=== PATIENT | male | born 1960 | race Caucasian/White ===

== ENCOUNTER 2017-05-02 10:30 | Inpatient (IN) | payer SELFPAY ==
[~2017-05-02] VITALS: Ht 177.8 cm; Wt 120.4 kg
[2017-05-02] VITALS (10 sets, daily range): BP systolic 156–205; BP diastolic 79–150; PULSE 82–96; RESP 17–20; TEMP 97–97.9; O2SAT 95–99
[2017-05-02] MEDS: SODIUM CHLORIDE 0.9% FLUSH 10 ML FLUSH IVF PRN ×2 (11:00→14:02)
[2017-05-02 11:18] LABS: AUTOMATED NEUTROPHIL # 3.6 TH/MM3 (1.8-7.7); BASOPHIL # 0.1 TH/MM3 (0-0.2); BASOPHIL % 1.2 % (0.0-2.0); EOSINOPHIL # 0.2 TH/MM3 (0-0.4); HEMATOCRIT 43.7 % (39.0-51.0); HEMO FLAGS DIFF FINAL; LYMPH % 15.6 % (9.0-44.0); LYMPHOCYTE # 0.8 TH/MM3 (1.0-4.8); MEAN CELL VOLUME 87.2 FL (80.0-100.0); MEAN CORPUSCULAR HEMOGLOBIN 29.8 PG (27.0-34.0); MEAN CORPUSCULAR HGB CONC 34.2 % (32.0-36.0); NEUT % 67.2 % (16.0-70.0); PLATELET COUNT 178 TH/MM3 (150-450); RED BLOOD COUNT 5.01 MIL/MM3 (4.50-5.90); RED CELL DISTRIBUTION WIDTH 15.7 % (11.6-17.2); WHITE BLOOD COUNT 5.4 TH/MM3 (4.0-11.0)
--- NOTE | 2017-05-02 11:25 | PD ---
HPI Chief Complaint: Respiratory Symptoms Time Seen by Provider: 10:47 Travel History International Travel<30 days: No Contact w/Intl Traveler<30days: No Traveled to known affect area: No History of Present Illness HPI 57-year-old male with no past medical history, presents today with complaints of shortness of breath. Patient also complains of swelling to his legs and abdomen. He denies any previous history of swelling. He denies any history of liver disease. The patient does state that he has drunk heavily in the past however states about 3 weeks ago he decreased his EtOH intake. There is no history of tobaccoism currently. He states he stopped smoking several years back. He has no heart disease. There are no other complaints time my examination. PFSH Past Medical History Medical History: Denies Significant Hx Diminished Hearing: No Tetanus Vaccination: > 5 Years Influenza Vaccination: No Past Surgical History Surgical History: No Previous Surgery Social History Alcohol Use: Yes (ocassionally) Tobacco Use: No (5 years ago) Substance Use: No (pt denies ) Allergies-Medications (Allergen,Severity, Reaction): Coded Allergies: No Known Allergies (Unverified , 05/02/17) Reported Meds & Prescriptions Reported Meds & Active Scripts Active No Active Prescriptions or Reported Medications Review of Systems Except as stated in HPI: all other systems reviewed are Neg General / Constitutional: No: Fever, Chills HENT: No: Headaches, Lightheadedness Cardiovascular: No: Chest Pain or Discomfort, Palpitations Respiratory: Positive: Cough, Shortness of Breath, No: Wheezing Gastrointestinal: Positive: Constipation, Other (abdominal swelling.), No: Nausea, Vomiting, Abdominal Pain Genitourinary: No: Dysuria, Decreased Urinary Output Musculoskeletal: Positive: Edema (bilateral lower extremities), No: Weakness, Pain Skin: Positive Itching (lower extremities), No Rash Neurologic: No: Weakness, Headache Physical Exam Narrative GENERAL: Developed well-nourished gentleman in no acute respiratory distress. SKIN: Focused skin assessment warm/dry. HEAD: Atraumatic. Normocephalic. EYES: Pupils equal and round. nasal bleeding or discharge. Mucous membranes pink and moist. NECK: Trachea midline. No JVD. CARDIOVASCULAR: Regular rate and rhythm. No murmur appreciated. RESPIRATORY: No accessory muscle use. Clear to auscultation. Breath sounds equal bilaterally. No obvious Rales appreciated. GASTROINTESTINAL: Abdomen soft, slightly distended. No fluid wave. No pulsatile masses. No rebound or guarding. MUSCULOSKELETAL: No obvious deformities. No clubbing. No cyanosis. 1+ edema bilateral lower extremities. The patient has a area of excoriation on his anterior ankle of the right leg. He states that that was from when he had significant swelling. NEUROLOGICAL: Awake and alert. No obvious cranial nerve deficits. Motor grossly within normal limits. Normal speech. PSYCHIATRIC: Appropriate mood and affect; insight and judgment normal. Data Data Last Documented VS Vital Signs Date Time Temp Pulse Resp B/P Pulse Ox O2 Delivery O2 Flow Rate FiO2 05/02/17 13:29 83 17 180/113 99 Room Air 05/02/17 12:19 97.9 Orders Complete Blood Count With Diff (05/02/17 10:58) Comprehensive Metabolic Panel (05/02/17 10:58) B-Type Natriuretic Peptide (05/02/17 10:58) Ckmb (Isoenzyme) Profile (05/02/17 10:58) Troponin I (05/02/17 10:58) Arterial Blood Gas (Abg) (05/02/17 10:58) Iv Access Insert/Monitor (05/02/17 10:58) Electrocardiogram (05/02/17 10:58) Ecg Monitoring (05/02/17 10:58) Oximetry (05/02/17 10:58) Oxygen Administration (05/02/17 10:58) Chest, Single Ap (05/02/17 10:58) Sodium Chloride 0.9% Flush (Ns Flush) (05/02/17 11:00) Hydralazine Inj (Apresoline Inj) (05/02/17 13:45) Furosemide Inj (Lasix Inj) (05/02/17 14:00) Admit Order (Ed Use Only) (05/02/17 13:55) Labs Laboratory Tests Test 05/02/17 05/02/17 11:00 11:05 White Blood Count 5.4 TH/MM3 Red Blood Count 5.01 MIL/MM3 Hemoglobin 14.9 GM/DL Hematocrit 43.7 % Mean Corpuscular Volume 87.2 FL Mean Corpuscular Hemoglobin 29.8 PG Mean Corpuscular Hemoglobin 34.2 % Concent Red Cell Distribution Width 15.7 % Platelet Count 178 TH/MM3 Mean Platelet Volume 9.5 FL Neutrophils (%) (Auto) 67.2 % Lymphocytes (%) (Auto) 15.6 % Monocytes (%) (Auto) 12.0 % Eosinophils (%) (Auto) 4.0 % Basophils (%) (Auto) 1.2 % Neutrophils # (Auto) 3.6 TH/MM3 Lymphocytes # (Auto) 0.8 TH/MM3 Monocytes # (Auto) 0.6 TH/MM3 Eosinophils # (Auto) 0.2 TH/MM3 Basophils # (Auto) 0.1 TH/MM3 CBC Comment DIFF FINAL Differential Comment Sodium Level 139 MEQ/L Potassium Level 3.6 MEQ/L Chloride Level 105 MEQ/L Carbon Dioxide Level 24.8 MEQ/L Anion Gap 9 MEQ/L Blood Urea Nitrogen 15 MG/DL Creatinine 1.29 MG/DL Estimat Glomerular Filtration 57 ML/MIN Rate Random Glucose 107 MG/DL Hemoglobin A1c 6.2 % Calcium Level 8.6 MG/DL Total Bilirubin 1.4 MG/DL Aspartate Amino Transf 12 U/L (AST/SGOT) Alanine Aminotransferase 17 U/L (ALT/SGPT) Alkaline Phosphatase 53 U/L Total Creatine Kinase 78 U/L Troponin I 0.02 NG/ML B-Type Natriuretic Peptide 1666 PG/ML Total Protein 6.7 GM/DL Albumin 3.5 GM/DL Triglycerides Level 90 MG/DL Cholesterol Level 163 MG/DL LDL Cholesterol 105 MG/DL HDL Cholesterol 40.3 MG/DL Cholesterol/HDL Ratio 4.04 RATIO Thyroid Stimulating Hormone 1.400 uIU/ML 3rd Gen Blood Gas Puncture Site RT RADIAL Blood Gas Patient Temperature 98.6 Blood Gas HCO3 22 mmol/L Blood Gas Base Excess -1.2 mmol/L Blood Gas Oxygen Saturation 93 % Arterial Blood pH 7.44 Arterial Blood Partial 33 mmHg Pressure CO2 Arterial Blood Partial 74 mmHG Pressure O2 Arterial Blood Oxygen Content 19.0 Vol % Arterial Blood 1.4 % Carboxyhemoglobin Arterial Blood Methemoglobin 0.6 % Blood Gas Hemoglobin 14.6 G/DL Blood Gas Inspired Oxygen 21 % [facility] Medical Decision Making Medical Screen Exam Complete: Yes Emergency Medical Condition: Yes Differential Diagnosis Renal disease versus liver disease versus dependent edema versus metabolic derangement Narrative Course 57 year-old gentleman presents with complaints of shortness of breath. Patient states it's been progressive over the last several days. Patient has congestive heart failure on x-ray and is BNP is also elevated above 1600. The patient's cardiac enzymes are within normal limits. His blood pressure was noted to be above 200 systolic when he arrived. He has no reported history of hypertension. He is given 1 dose of IV hydralazine of 10 mg. It brought it down however is gone back up again. He is given a second dose of IVD hydralazine as well as 20 mg of IV Lasix. He'll be admitted to the hospital for blood pressure control. He'll also be diuresed. I discussed the case [facility] [place], who is gracious enough to admit to the service. He'll be a full admission. Diagnosis Primary Impression: Congestive heart failure Additional Impression: Uncontrolled hypertension Admitting Information Admitting Physician Requests: Admit Scripts No Active Prescriptions or Reported Meds Edgar Pineda MD May 02, 2017 11:25
--- NOTE | 2017-05-02 11:30 | RADRPT ---
EXAM DATE/TIME: 05/02/2017 11:01 [place] COMPARISON: No previous studies available for comparison. INDICATIONS : Lower extremity swelling along with shortness of breath. MEDICAL HISTORY : None. SURGICAL HISTORY : None ENCOUNTER: Initial ACUITY: 2 weeks PAIN SCORE: 3/10 LOCATION: Bilateral upper chest FINDINGS: There is cardiomegaly with mild congestive failure. Minimal parenchymal l changes are seen in the ri ght apex and left base. The portion of the bony skeleton visualized is unremarkable. CONCLUSION: Cardiomegaly with mild congestive failure. Minimal right apical and left base consolidative change s Peter Clemens MD FACR on May 02, 2017 at 11:26 Board Certified Radiologist. This report was verified electronically.
[2017-05-02 11:39] LABS: ALT (GPT) 17 U/L (12-78); ANION GAP 9 MEQ/L (5-15); AST (GOT) 12 U/L (15-37); BICARBONATE 24.8 MEQ/L (21.0-32.0); BLOOD UREA NITROGEN 15 MG/DL (7-18); CHLORIDE 105 MEQ/L (98-107); GLOMERULAR FILTRATION RATE 57 ML/MIN (>89); POTASSIUM 3.6 MEQ/L (3.5-5.1); SODIUM (NA) 139 MEQ/L (136-145)
[2017-05-02 11:43] LABS: ALKALINE PHOSPHATASE 53 U/L (45-117); TOTAL BILIRUBIN ADULT 1.4 MG/DL (0.2-1.0)
[2017-05-02 11:48] LABS: CREATINE KINASE 78 U/L (39-308)
[2017-05-02 13:08] LABS: BLOOD GAS BASE EXCESS -1.2 mmol/L (-2-2); BLOOD GAS CARBOXYHEMOGLOBIN 1.4 % (0-4); BLOOD GAS HCO3 22 mmol/L (22-26); BLOOD GAS METHEMOGLOBIN 0.6 % (0-2); BLOOD GAS O2 HGB SATURATION 93 % (90-100); BLOOD GAS PCO2 33 mmHg (38-42); BLOOD GAS PO2 74 mmHG (61-120); BLOOD GAS TOTAL HGB 14.6 G/DL (12.0-16.0); CRITICAL VALUE NO; TEMP CORR TO 98.6
[2017-05-02 13:09] LABS: DRAW SITE RT RADIAL; FIO2 21 %; NUMBER OF ARTERIAL PUNCTURES 1; STAT YES; ULNAR PULSE PRESENT
[2017-05-02] MEDS ORDERED: hydrALAZINE HCL 20 MG/ML VIAL IV PUSH ONE ×2 (13:45→16:45)
[2017-05-02] MEDS ORDERED: FUROSEMIDE 40 MG/4 ML VIAL IV PUSH ONE (14:00)
[2017-05-02] MEDS ORDERED: SODIUM CHLORIDE 0.9% FLUSH 10 ML FLUSH IV FLUSH PRN (14:45)
[2017-05-02] MEDS ORDERED: NALOXONE HCL 0.4 MG/ML AMP IV PRN (14:45)
[2017-05-02 15:52] LABS: HDL CHOLESTEROL 40.3 MG/DL (40.0-60.0); LDL CHOLESTEROL 105 MG/DL (0-99)
[2017-05-02] MEDS: ENOXAPARIN SODIUM 40 MG/0.4 ML SYRINGE SQ SCH (16:03)
--- NOTE | 2017-05-02 16:24 | EKG ---
Date Performed: 05/02/2017 Time Performed: 11:11:51 PTAGE: 57 years EKG: Sinus rhythm POSSIBLE LEFT ATRIAL ENLARGEMENT MODERATE INTRAVENTRICULAR CONDUCTION DELAY NONSPECIFIC ST & T-WAVE ABNORMALITY ABNORMAL ECG NO PREVIOUS TRACING DOCTOR: Jerome Duque Interpretating Date/Time 05/02/2017 16:21:05
--- NOTE | 2017-05-02 16:58 | HHI.HP ---
HPI Service [facility] Primary Care Physician No Primary Care Physician Admission Diagnosis chf, uncontrolled hypertension, Diagnoses: Chief Complaint: Swelling, shortness of breath Travel History International Travel<30 Days: No Contact w/Intl Traveler <30 Da: No Traveled to Known Affected Are: No History of Present Illness The patient is a 57-year-old male with no significant past medical history who is presenting to the hospital with generalized swelling and shortness of breath. He says about a month ago he noticed tightness around his abdomen and he became constipated. He says over the next 5-6 days his symptoms got better and he was doing well. Over the last 2 weeks he has been experiencing increased swelling in his legs up to his upper thighs. He also has been endorsing the abdominal tightness and distention. He has had associated shortness of breath. He says he used to bicycle 20 miles daily but over the past month has been unable to do so because of his symptoms. He says that his shortness of breath is worse when he lays down or when he walks around. He says he has not been getting much sleep because a lot of the times he will wake up gasping for air. The patient says that he experiences palpitations from time to time. He says the palpitations occur at rest. They generally will last a few seconds at a time. The patient also endorses a cough with phlegm production recently. He has felt feverish but his thermometer ran out of batteries so he has not been able to measure a temperature. Review of Systems Except as stated in HPI: all other systems reviewed are Neg Past Family Social History Past Medical History Lower abdominal surgery Allergies: Coded Allergies: No Known Allergies (Unverified , 05/02/17) Active Ordered Medications Current Medications Medications (Trade) Dose Ordered Sig/Emma Route Start Time Stop Time Status Last Admin (NS Flush) 2 ml UNSCH PRN IV FLUSH 05/02/17 14:45 (NS Flush) 2 ml BID IV FLUSH 05/02/17 21:00 (Tylenol) 650 mg Q4H PRN PO 05/02/17 14:45 (Lovenox Inj) 40 mg Q24H SQ 05/02/17 16:00 05/02/17 16:03 (Tylenol) 650 mg Q6H PRN PO 05/02/17 14:45 (Narcan Inj) 0.4 mg UNSCH PRN IV 05/02/17 14:45 (Elodia-Colace) 1 tab BID PO 05/02/17 21:00 (Prinivil) 10 mg DAILY PO 05/02/17 17:00 (Vasotec Inj) 2.5 mg Q6H PRN IV PUSH 05/02/17 17:00 (Catapres) 0.1 mg Q6H PRN PO 05/02/17 17:00 Family History The patient's grandmother from a heart attack in her 60s. The patient's grandfather from colon cancer. Social History The patient is currently not working. He quit smoking last year. He drinks half a pint of vodka daily, but has not done so over the past month. He denies illicit drug use. Physical Exam Vital Signs Vital Signs Date Time Temp Pulse Resp B/P Pulse Ox O2 Delivery O2 Flow Rate FiO2 05/02/17 16:19 83 19 189/131 96 Room Air 05/02/17 14:51 97.8 83 17 183/96 99 05/02/17 13:29 83 17 180/113 99 Room Air 05/02/17 12:19 97.9 82 18 185/112 98 Room Air 05/02/17 11:00 98 Room Air 05/02/17 11:00 20 98 Room Air 05/02/17 11:00 96 20 98 Room Air 05/02/17 10:32 97.0 96 205/150 96 Room Air Physical Exam GENERAL: This is a well-nourished, well-developed patient, in no apparent distress. SKIN: No rashes, ecchymoses. Cool and dry. Lipoma on right upper back. HEAD: Atraumatic. Normocephalic. No temporal or scalp tenderness. EYES: Pupils equal round and reactive. Extraocular motions intact. No scleral icterus. No injection or drainage. ENT: Nose without bleeding, purulent drainage or septal hematoma. Throat without erythema, tonsillar hypertrophy or exudate. Uvula midline. Airway patent. NECK: Trachea midline. No JVD or lymphadenopathy. Supple, nontender, no meningeal signs. CARDIOVASCULAR: Tachycardic without murmurs, gallops, or rubs. RESPIRATORY: Clear to auscultation. Breath sounds equal bilaterally. No wheezes , rales, or rhonchi. GASTROINTESTINAL: Abdomen soft, non-tender, distended. No hepato-splenomegaly, or palpable masses. No guarding. MUSCULOSKELETAL: Extremities without clubbing, cyanosis, 1+ edema. No joint tenderness, effusion. NEUROLOGICAL: Awake and alert. Cranial nerves II through XII intact. Motor and sensory grossly within normal limits. Five out of 5 muscle strength in all muscle groups. Normal speech. PSYCH: Mood and affect appropriate. Laboratory Laboratory Tests Test 05/02/17 05/02/17 11:00 11:05 White Blood Count 5.4 Red Blood Count 5.01 Hemoglobin 14.9 Hematocrit 43.7 Mean Corpuscular Volume 87.2 Mean Corpuscular Hemoglobin 29.8 Mean Corpuscular Hemoglobin 34.2 Concent Red Cell Distribution Width 15.7 Platelet Count 178 Mean Platelet Volume 9.5 Neutrophils (%) (Auto) 67.2 Lymphocytes (%) (Auto) 15.6 Monocytes (%) (Auto) 12.0 Eosinophils (%) (Auto) 4.0 Basophils (%) (Auto) 1.2 Neutrophils # (Auto) 3.6 Lymphocytes # (Auto) 0.8 Monocytes # (Auto) 0.6 Eosinophils # (Auto) 0.2 Basophils # (Auto) 0.1 CBC Comment DIFF FINAL Differential Comment Sodium Level 139 Potassium Level 3.6 Chloride Level 105 Carbon Dioxide Level 24.8 Anion Gap 9 Blood Urea Nitrogen 15 Creatinine 1.29 Estimat Glomerular Filtration 57 Rate Random Glucose 107 Calcium Level 8.6 Total Bilirubin 1.4 Aspartate Amino Transf 12 (AST/SGOT) Alanine Aminotransferase 17 (ALT/SGPT) Alkaline Phosphatase 53 Total Creatine Kinase 78 Troponin I 0.02 B-Type Natriuretic Peptide 1666 Total Protein 6.7 Albumin 3.5 Triglycerides Level 90 Cholesterol Level 163 LDL Cholesterol 105 HDL Cholesterol 40.3 Cholesterol/HDL Ratio 4.04 Thyroid Stimulating Hormone 1.400 3rd Gen Blood Gas Puncture Site RT RADIAL Blood Gas Patient Temperature 98.6 Blood Gas HCO3 22 Blood Gas Base Excess -1.2 Blood Gas Oxygen Saturation 93 Arterial Blood pH 7.44 Arterial Blood Partial 33 Pressure CO2 Arterial Blood Partial 74 Pressure O2 Arterial Blood Oxygen Content 19.0 Arterial Blood 1.4 Carboxyhemoglobin Arterial Blood Methemoglobin 0.6 Blood Gas Hemoglobin 14.6 Blood Gas Inspired Oxygen 21 Result Diagram: 05/02/17 1100 05/02/17 1100 Imaging Last Impressions Chest X-Ray 05/02/17 1058 Signed Impressions: Service Date/Time: Tuesday, May 02, 2017 11:01 - CONCLUSION: Cardiomegaly with mild congestive failure. Minimal right apical and left base consolidative changes Peter Clemens MD FACR Assessment and Plan Assessment and Plan New-onset acute heart failure The patient endorses lower extremity edema, abdominal distention, dyspnea on exertion, orthopnea and paroxysmal nocturnal dyspnea. Imaging indicative of mild failure. BNP elevated at 1666. He received Lasix in the emergency department with good output. EKG without acute ischemia. Systolic blood pressure markedly elevated in the emergency department, likely underlying cause of CHF. He also used to smoke and drinks heavily. LDL 105. - Continue to trend troponins. - Check an echocardiogram. - Continue Lasix 20 mg IV twice a day. - Strict I's and O's. - Repeat EKG in the morning. - Check hemoglobin A1c. - Blood pressure control. - Smoking cessation instruction. - Monitor on telemetry. Accelerated hypertension Systolic blood pressure over 200 in the emergency department. He received IV hydralazine. He has no history of hypertension. - Start lisinopril 20 mg by mouth daily. - Vasotec IV and clonidine as needed. - Hold off on adding beta elisa as currently in acute heart failure. Alcohol abuse The patient endorses drinking up to half a pint of vodka daily, however, he says he has not done so in over a month. Total bilirubin is elevated. Albumin is normal. No evidence of withdrawal. - Check a PT/INR to rule out liver failure as an etiology of the patient's edema and dyspnea. - Drinking cessation instruction. - Trend LFTs. Bronchitis The patient endorses a cough with mucus production. Chest x-ray with minimal consolidative changes. Afebrile and without leukocytosis. - Sputum culture and Gram stain requested. - Oxygen and nebs as needed. PPx: Lovenox Code Status Full Discussed Condition With Dr. Pineda, pt, nurse Physician Certification 2 Midnight Certification Type: Admission for Inpatient Services Order for Inpatient Services The services are ordered in accordance with Medicare regulations or non- Medicare payer requirements, as applicable. In the case of services not specified as inpatient-only, they are appropriately provided as inpatient services in accordance with the 2-midnight benchmark. Estimated LOS (days): 2 days is the estimated time the patient will need to remain in the hospital, assuming treatment plan goals are met and no additional complications. Post-Hospital Plan: Home Guido Bender DO May 02, 2017 16:58
[2017-05-02] MEDS ORDERED: ENALAPRILAT 2.5 MG/2 ML VIAL IV PUSH PRN (17:00)
[2017-05-02] MEDS ORDERED: POTASSIUM CHLORIDE 20 MEQ CONTROLLED RELEASE TAB PO ONE (17:00)
[2017-05-02] MEDS ORDERED: LISINOPRIL 10 MG TAB PO SCH (17:00)
[2017-05-02] MEDS ORDERED: RESP: ALBUTEROL 2.5 MG/IPRATROPIUM 0.5 MG NEB (PRN) NEB (17:00)
[2017-05-02 17:16] LABS: HEMOGLOBIN A1a 1.4 %; HEMOGLOBIN A1b 1.7 %; HEMOGLOBIN Ao 84.1 %
[2017-05-02] MEDS: LISINOPRIL 10 MG TAB PO SCH (17:39)
[2017-05-02] MEDS: FUROSEMIDE 20 MG/2 ML VIAL IV PUSH SCH (17:40)
[2017-05-02] MEDS: DOCUSATE SODIUM 50 MG/SENNA 8.6 MG TAB PO SCH (20:53)
[2017-05-02] MEDS: SODIUM CHLORIDE 0.9% FLUSH 10 ML FLUSH IV FLUSH SCH (21:00)
[2017-05-02] MEDS: ACETAMINOPHEN 325 MG TAB PO PRN (22:28)
[2017-05-03] VITALS (9 sets, daily range): BP systolic 142–188; BP diastolic 66–119; PULSE 64–85; RESP 17–22; TEMP 97.2–98.6; O2SAT 95–98
[2017-05-03] MEDS: cloNIDine HCL 0.1 MG TAB PO PRN (01:10)
[2017-05-03] MEDS: ACETAMINOPHEN 325 MG TAB PO PRN ×4 (05:20→23:10)
[2017-05-03 07:25] LABS: AUTOMATED NEUTROPHIL # 4.7 TH/MM3 (1.8-7.7); BASOPHIL % 0.7 % (0.0-2.0); EOSINOPHIL # 0.1 TH/MM3 (0-0.4); EOSINOPHIL % 2.4 % (0.0-4.0); HEMATOCRIT 44.4 % (39.0-51.0); HEMO FLAGS DIFF FINAL; LYMPH % 10.4 % (9.0-44.0); LYMPHOCYTE # 0.6 TH/MM3 (1.0-4.8); MEAN CELL VOLUME 88.2 FL (80.0-100.0); MEAN CORPUSCULAR HEMOGLOBIN 29.3 PG (27.0-34.0); MEAN CORPUSCULAR HGB CONC 33.2 % (32.0-36.0); MONO % 10.8 % (0.0-8.0); NEUT % 75.7 % (16.0-70.0); PLATELET COUNT 178 TH/MM3 (150-450); RED BLOOD COUNT 5.03 MIL/MM3 (4.50-5.90); RED CELL DISTRIBUTION WIDTH 15.2 % (11.6-17.2); WHITE BLOOD COUNT 6.2 TH/MM3 (4.0-11.0)
[2017-05-03 07:29] LABS: INTERNATIONAL NORMALIZED RATIO 1.1 RATIO; PROTHROMBIN TIME - PATIENT 12.7 SEC (9.8-11.6)
[2017-05-03 07:47] LABS: ALT (GPT) 18 U/L (12-78); ANION GAP 12 MEQ/L (5-15); AST (GOT) 10 U/L (15-37); BICARBONATE 23.9 MEQ/L (21.0-32.0); BLOOD UREA NITROGEN 15 MG/DL (7-18); CHLORIDE 102 MEQ/L (98-107); GLOMERULAR FILTRATION RATE 75 ML/MIN (>89); POTASSIUM 3.3 MEQ/L (3.5-5.1); SODIUM (NA) 138 MEQ/L (136-145)
[2017-05-03 07:49] LABS: ALKALINE PHOSPHATASE 52 U/L (45-117); TOTAL BILIRUBIN ADULT 1.5 MG/DL (0.2-1.0)
[2017-05-03] MEDS ORDERED: PNEUMOCOCCAL POLYVALENT INJ 25 MCG/0.5 ML SYR IM ONE (09:00)
[2017-05-03] MEDS ORDERED: POTASSIUM CHLORIDE 20 MEQ CONTROLLED RELEASE TAB PO SCH ×2 (09:00)
[2017-05-03] MEDS: DOCUSATE SODIUM 50 MG/SENNA 8.6 MG TAB PO SCH ×2 (09:05→21:08)
[2017-05-03] MEDS: LISINOPRIL 10 MG TAB PO SCH (09:05)
[2017-05-03] MEDS: FUROSEMIDE 20 MG/2 ML VIAL IV PUSH SCH ×2 (09:08→16:49)
[2017-05-03] MEDS: SODIUM CHLORIDE 0.9% FLUSH 10 ML FLUSH IV FLUSH SCH ×2 (09:10→21:00)
--- NOTE | 2017-05-03 10:22 | HHI.PR ---
Subjective Remarks The patient said that his breathing was better. He says his legs were also better. He still complained of distention in his abdomen. He has been urinating a lot. He says his blood pressure is better controlled. He wanted to know if there was damage to his heart. Objective Vitals Vital Signs Date Time Temp Pulse Resp B/P Pulse Ox O2 Delivery O2 Flow Rate FiO2 05/03/17 08:03 97.3 64 17 148/68 96 05/03/17 07:15 Room Air 05/03/17 04:00 97.8 85 18 178/90 96 05/03/17 04:00 Room Air 05/03/17 00:00 Room Air 05/03/17 00:00 98.5 85 18 188/119 95 05/02/17 22:31 Room Air 05/02/17 21:47 88 05/02/17 20:00 97.7 91 20 156/93 95 05/02/17 19:04 97.8 98 17 177/79 99 05/02/17 17:43 97.8 85 17 182/98 98 Room Air 05/02/17 16:19 83 19 189/131 96 Room Air 05/02/17 14:51 97.8 83 17 183/96 99 05/02/17 13:29 83 17 180/113 99 Room Air 05/02/17 12:19 97.9 82 18 185/112 98 Room Air 05/02/17 11:00 98 Room Air 05/02/17 11:00 20 98 Room Air 05/02/17 11:00 96 20 98 Room Air 05/02/17 10:32 97.0 96 205/150 96 Room Air I/O 05/02/17 05/02/17 05/02/17 05/03/17 05/03/17 05/03/17 07:00 15:00 23:00 07:00 15:00 23:00 Intake Total 300 ml Output Total 400 ml 2950 ml Balance -400 ml -2650 ml Intake Oral 300 ml Output Urine Total 400 ml 2950 ml # Voids 1 4 # Bowel Movements 0 0 Result Diagram: 05/03/17 0619 05/03/17 0619 Imaging Last Impressions Chest X-Ray 05/02/17 1058 Signed Impressions: Service Date/Time: Tuesday, May 02, 2017 11:01 - CONCLUSION: Cardiomegaly with mild congestive failure. Minimal right apical and left base consolidative changes Peter Clemens MD FACR Objective Remarks GENERAL: This is a well-nourished, well-developed patient, in no apparent distress. SKIN: No rashes, ecchymoses. Cool and dry. Lipoma on right upper back. HEAD: Atraumatic. Normocephalic. No temporal or scalp tenderness. EYES: Pupils equal round and reactive. Extraocular motions intact. No scleral icterus. No injection or drainage. ENT: Nose without bleeding, purulent drainage or septal hematoma. Throat without erythema, tonsillar hypertrophy or exudate. Uvula midline. Airway patent. NECK: Trachea midline. No JVD or lymphadenopathy. Supple, nontender, no meningeal signs. CARDIOVASCULAR: Regular rate and rhythm without murmurs, gallops, or rubs. RESPIRATORY: Clear to auscultation. Breath sounds equal bilaterally. No wheezes , rales, or rhonchi. GASTROINTESTINAL: Abdomen soft, non-tender, distended. No hepato-splenomegaly, or palpable masses. No guarding. MUSCULOSKELETAL: Extremities without clubbing, cyanosis, TR-1+ edema. No joint tenderness, effusion. NEUROLOGICAL: Awake and alert. Cranial nerves II through XII intact. Motor and sensory grossly within normal limits. Five out of 5 muscle strength in all muscle groups. Normal speech. PSYCH: Mood and affect appropriate. Medications and IVs Current Medications Medications (Trade) Dose Ordered Sig/Emma Route Start Time Stop Time Status Last Admin (NS Flush) 2 ml UNSCH PRN IV FLUSH 05/02/17 14:45 (NS Flush) 2 ml BID IV FLUSH 05/02/17 21:00 05/03/17 09:10 (Tylenol) 650 mg Q4H PRN PO 05/02/17 14:45 (Lovenox Inj) 40 mg Q24H SQ 05/02/17 16:00 05/02/17 16:03 (Tylenol) 650 mg Q6H PRN PO 05/02/17 14:45 05/03/17 05:20 (Narcan Inj) 0.4 mg UNSCH PRN IV 05/02/17 14:45 (Elodia-Colace) 1 tab BID PO 05/02/17 21:00 05/03/17 09:05 (Vasotec Inj) 2.5 mg Q6H PRN IV PUSH 05/02/17 17:00 (Catapres) 0.1 mg Q6H PRN PO 05/02/17 17:00 05/03/17 01:10 (Lasix Inj) 20 mg BID@09,18 IV PUSH 05/02/17 18:00 05/03/17 09:08 (Prinivil) 20 mg DAILY PO 05/02/17 17:00 05/03/17 09:05 (KCl) 40 meq DAILY PO 05/03/17 09:00 05/03/17 09:05 A/P Assessment and Plan New-onset acute heart failure The patient endorses lower extremity edema, abdominal distention, dyspnea on exertion, orthopnea and paroxysmal nocturnal dyspnea. Imaging indicative of mild failure. BNP elevated at 1666. He received Lasix in the emergency department with good output. EKG with T wave inversions in the lateral leads. Systolic blood pressure markedly elevated in the emergency department, likely underlying cause of CHF. He also used to smoke and drinks heavily. LDL 105. Trops flat. A1c 6.2%. - Check an echocardiogram. - Continue Lasix 20 mg IV twice a day. - Strict I's and O's. - Blood pressure control. - Smoking cessation instruction. - Monitor on telemetry. - cardiology consult requested. Accelerated hypertension Systolic blood pressure over 200 in the emergency department. He received IV hydralazine. He has no history of hypertension. - Started lisinopril 20 mg by mouth daily. - Vasotec IV and clonidine as needed. - Hold off on adding beta elisa as currently in heart failure. Alcohol abuse The patient endorses drinking up to half a pint of vodka daily, however, he says he has not done so in over a month. Total bilirubin is elevated. Albumin and INR are normal. No evidence of withdrawal. - Drinking cessation instruction. - Trend LFTs. Bronchitis The patient endorses a cough with mucus production. Chest x-ray with minimal consolidative changes. Afebrile and without leukocytosis. - Sputum culture and Gram stain requested. - Oxygen and nebs as needed. PPx: Lovenox Discharge Planning Awaiting cardiology Guido Joshi DO May 03, 2017 10:22
--- NOTE | 2017-05-03 12:44 | ECHRPT ---
Indication: heart failure CONCLUSIONS Moderately dilated left ventricle. The left ventricular systolic function is severely reduced with an estimated ejection fraction in th e range of 20-25%. There is global left ventricular dysfunction. The left atrial size is upper limits of normal. Mild mitral valve regurgitation. No aortic valve regurgitation. No aortic valve stenosis. There is mild tricuspid valve regurgitation. There is estimated moderate pulmonary hypertension present (range 50-60 mmHg). The pulmonary valve is not well visualized. BP: / HR: Rhythm: MEASUREMENTS (Male / Female) Normal Values Technical Quality:Good 2D ECHO LV Diastolic Diameter PLAX 6.4 cm 4.2 - 5.9 / 3.9 - 5.3 cm LV Systolic Diameter PLAX 5.7 cm IVS Diastolic Thickness 1.4 cm 0.6 - 1.0 / 0.6 - 0.9 cm LVPW Diastolic Thickness 1.7 cm 0.6 - 1.0 / 0.6 - 0.9 cm LV Relative Wall Thickness 0.5 RV Internal Dim ED PLAX 4.3 cm M-MODE Aortic Root Diameter MM 4.4 cm LA Systolic Diameter MM 5.1 cm LA Ao Ratio MM 1.2 AV Cusp Separation MM 2.6 cm DOPPLER LV E' Lateral Velocity 6.0 cm/s LV E' Septal Velocity 4.5 cm/s TR Peak Velocity 320.0 cm/s TR Peak Gradient 41.0 mmHg FINDINGS LEFT VENTRICLE Moderately dilated left ventricle. The left ventricular systolic function is severely reduced with an estimated ejection fraction in th e range of 20-25%. There is global left ventricular dysfunction. RIGHT VENTRICLE Normal right ventricular size and systolic function. LEFT ATRIUM The left atrial size is upper limits of normal. RIGHT ATRIUM The right atrial size is normal. ATRIAL SEPTUM Normal atrial septal thickness without atrial level shunting by limited color doppler interrogation. AORTA The aortic root and proximal ascending aorta are normal in size on limited imaging. MITRAL VALVE Structurally normal mitral valve. Mild mitral valve regurgitation. AORTIC VALVE Trileaflet aortic valve. No aortic valve regurgitation. No aortic valve stenosis. TRICUSPID VALVE Structurally normal tricuspid valve. There is mild tricuspid valve regurgitation. There is estimated moderate pulmonary hypertension present (range 50-60 mmHg). PULMONARY VALVE The pulmonary valve is not well visualized. VESSELS The inferior vena cava is normal in size. PERICARDIUM No pericardial effusion. Jesse Serna MD, FACC (Electronically Signed) Final Date:03 May 2017 12:44
--- NOTE | 2017-05-03 15:02 | EKG ---
Date Performed: 05/03/2017 Time Performed: 06:22:00 PTAGE: 57 years EKG: Sinus rhythm Left ventricular hypertrophy Extensive ST-T changes may be due to hypertrophy and/or ischemia Abnorm al ECG NO PREVIOUS TRACING DOCTOR: Rajani Medina Interpretating Date/Time 05/03/2017 14:57:00
[2017-05-03] MEDS: ENOXAPARIN SODIUM 40 MG/0.4 ML SYRINGE SQ SCH (16:49)
--- NOTE | 2017-05-03 17:57 | MB ---
cc: [place] [facility] DATE OF CONSULTATION 05/03/2017 INDICATION Shortness of breath. HISTORY OF PRESENT ILLNESS A 57-year-old gentleman without prior history of known heart disease who presents now with progressive generalized shortness of breath worse with exertion, in addition to swelling and abdominal distension. States that he notices tightness in his abdomen associated with constipation over the course of the past week. He has also had progressive shortness of breath and edema up to the level of this thighs. He used to do quite of bicycling but now he has been limited secondary to his shortness of breath. He has not had any recent viral illnesses that he recalls. He came into the emergency department. A chest x-ray did show some interstitial edema. His BNP was elevated and felt to be in congestive heart failure. He was given some diuretic and symptomatically feels much better with good diuresis. We are consulted for further recommendations. Echocardiogram has been done but has not been reviewed. PAST MEDICAL HISTORY 1. Abdominal surgery otherwise unremarkable. 2. He probably has undiagnosed hypertension. ALLERGIES NO KNOWN DRUG ALLERGIES. FAMILY HISTORY Denies any family history of early coronary artery disease or sudden cardia . SOCIAL HISTORY He drinks half pint of vodka daily. Denies any drug use. Quit smoking last year. REVIEW OF SYSTEMS A 12-point review of symptoms was performed and negative unless otherwise noted in the history of present illness. PHYSICAL EXAMINATION VITAL SIGNS: Temperature 97, blood pressure 140/68 mmHg, pulse 64. GENERAL: Alert and oriented times three. In no acute distress. HEENT: Exam shows pupils reactive to light and accommodation. Extraocular movements intact. NECK: Jugular veins distended. No thyromegaly or lymphadenopathy. No carotid bruits. CARDIOVASCULAR: Regular rate and rhythm without murmurs, rubs, or gallops. Distant heart sounds. LUNGS: Examination shows bibasilar crackles. ABDOMEN: Distended but nontender. EXTREMITIES: Show 1+ edema. Good peripheral pulses. NEUROLOGIC: Cranial nerves intact. Motor and sensory grossly intact. LABORATORY DATA WBC 6.2, hemoglobin 14.7, platelet count 178. INR is 1.1. Sodium 138, potassium 3.3, BUN 15, creatinine is 1.02. Troponins negative. BNP is 1666. ASSESSMENT 1. Congestive heart failure. 2. Hypertension. 3. Alcohol abuse. PLAN The patient symptomatically is doing well after diuresis. Echocardiogram is pending. His symptoms may be secondary to diastolic dysfunction with flash pulmonary edema due to his hypertensive response or could have an underlying cardiomyopathy. He seems to be a fairly heavy drinker so that would be a consideration in addition to viral and/or sounds ischemic etiology. We will wait to see with the echocardiogram shows. Blood pressure control will be critical. He is on lisinopril. We can titrate as tolerated along with beta elisa. MD DORIAN Rosales/KK /11:51 AM /5:38 PM
[2017-05-03] MEDS: POTASSIUM CHLORIDE 20 MEQ CONTROLLED RELEASE TAB PO SCH (21:08)
[2017-05-04] VITALS (7 sets, daily range): BP systolic 131–161; BP diastolic 88–112; PULSE 70–80; RESP 16–20; TEMP 97.1–98.1; O2SAT 95–98
[2017-05-04] MEDS: ACETAMINOPHEN 325 MG TAB PO PRN ×3 (04:09→21:59)
[2017-05-04] MEDS: cloNIDine HCL 0.1 MG TAB PO PRN ×2 (08:36→18:19)
[2017-05-04] MEDS: POTASSIUM CHLORIDE 20 MEQ CONTROLLED RELEASE TAB PO SCH ×2 (08:36→21:59)
[2017-05-04] MEDS: DOCUSATE SODIUM 50 MG/SENNA 8.6 MG TAB PO SCH ×2 (08:36→21:00)
[2017-05-04] MEDS: LISINOPRIL 10 MG TAB PO SCH (08:36)
[2017-05-04] MEDS: SODIUM CHLORIDE 0.9% FLUSH 10 ML FLUSH IV FLUSH SCH ×2 (08:37→21:00)
[2017-05-04] MEDS: FUROSEMIDE 20 MG/2 ML VIAL IV PUSH SCH (08:37)
[2017-05-04] MEDS: METOPROLOL TARTRATE 25 MG TAB PO SCH ×2 (08:43→21:59)
[2017-05-04 08:49] LABS: BICARBONATE 25.2 MEQ/L (21.0-32.0); MAGNESIUM 2.3 MG/DL (1.5-2.5); POTASSIUM 3.9 MEQ/L (3.5-5.1)
[2017-05-04] MEDS ORDERED: DEFIB EXTERNAL (08:56)
--- NOTE | 2017-05-04 08:56 | PD.CARD.PN ---
Subjective Subjective Remarks denies shortness of breath (Stephen Sales) Objective Vital Signs / I&O Vital Signs Date Time Temp Pulse Resp B/P Pulse Ox O2 Delivery O2 Flow Rate FiO2 05/04/17 06:00 Room Air 05/04/17 04:00 97.4 76 20 161/104 96 05/04/17 00:02 Room Air 05/04/17 00:00 98.1 77 16 147/95 95 05/03/17 20:20 74 05/03/17 20:00 98.6 78 22 148/94 97 05/03/17 20:00 Room Air 05/03/17 16:03 97.2 67 17 142/66 96 05/03/17 12:03 97.2 66 17 146/68 96 05/03/17 11:04 98 21 I/O 05/03/17 05/03/17 05/03/17 05/04/17 05/04/17 05/04/17 07:00 15:00 23:00 07:00 15:00 23:00 Intake Total 420 ml 222 ml 2160 ml Output Total 400 ml Balance 420 ml -178 ml 2160 ml Intake Oral 420 ml 220 ml 2160 ml IV Total 0 ml 2 ml Output Urine Total 400 ml # Voids 5 6 # Bowel Movements 1 0 0 Physical Exam GENERAL: Well-nourished, well-developed patient in no apparent distress. NECK: No JVD. No carotid bruit. CARDIOVASCULAR: Regular rate and rhythm. S1/S2 no murmur, rub, or gallop. RESPIRATORY: No accessory muscle use. Clear to auscultation. Breath sounds equal bilaterally. GASTROINTESTINAL: Abdomen soft, non-tender, nondistended. MUSCULOSKELETAL: Extremities without clubbing, cyanosis, or edema. Laboratory Laboratory Tests Test 05/04/17 06:45 Sodium Level 138 MEQ/L Potassium Level 3.9 MEQ/L Chloride Level 104 MEQ/L Carbon Dioxide Level 25.2 MEQ/L Anion Gap 9 MEQ/L Blood Urea Nitrogen 15 MG/DL Creatinine 1.02 MG/DL Estimat Glomerular Filtration 75 ML/MIN Rate Random Glucose 105 MG/DL Calcium Level 8.6 MG/DL Magnesium Level 2.3 MG/DL (Stephen Sales) Assessment and Plan Discussed Condition With cardiomyopathy of uncertain etiology - get SPECT, continue diuretics, continue TARI-I and add BB, order Life Vest and plan to maximize medications over three months and repeat echo then. (Stephen Sales) Assessment and Plan probable NICM lexiscan cont diuresis. guideline directed medical mgt if saurav negative, then LifeVest and DC home FU in opd echo in 2.5 months if no improvement, then ICD. if lexiscan abnormal perfusion, then LHC. (Jesse Serna MD) Stephen Sales May 04, 2017 08:56 Jesse Serna MD May 04, 2017 09:00
[2017-05-04] MEDS ORDERED: CARVEDILOL 6.25 MG TAB PO SCH (09:00)
--- NOTE | 2017-05-04 10:09 | HHI.PR ---
Subjective Remarks The patient was a little upset that he heard his heart was not working out great. He said he had a bad night. He said his blood pressure went high and he had a headache. He said his breathing is better. He thinks he will be ready to go home tomorrow. Objective Vitals Vital Signs Date Time Temp Pulse Resp B/P Pulse Ox O2 Delivery O2 Flow Rate FiO2 05/04/17 08:00 97.5 75 19 161/105 96 155/106 05/04/17 06:00 Room Air 05/04/17 04:00 97.4 76 20 161/104 96 05/04/17 00:02 Room Air 05/04/17 00:00 98.1 77 16 147/95 95 05/03/17 20:20 74 05/03/17 20:00 98.6 78 22 148/94 97 05/03/17 20:00 Room Air 05/03/17 16:03 97.2 67 17 142/66 96 05/03/17 12:03 97.2 66 17 146/68 96 05/03/17 11:04 98 21 I/O 05/03/17 05/03/17 05/03/17 05/04/17 05/04/17 05/04/17 07:00 15:00 23:00 07:00 15:00 23:00 Intake Total 420 ml 222 ml 2160 ml Output Total 400 ml Balance 420 ml -178 ml 2160 ml Intake Oral 420 ml 220 ml 2160 ml IV Total 0 ml 2 ml Output Urine Total 400 ml # Voids 5 6 # Bowel Movements 1 0 0 Result Diagram: 05/03/17 0619 05/04/17 0645 Imaging Last Impressions Chest X-Ray 05/02/17 1058 Signed Impressions: Service Date/Time: Tuesday, May 02, 2017 11:01 - CONCLUSION: Cardiomegaly with mild congestive failure. Minimal right apical and left base consolidative changes Peter Clemens MD FACR Objective Remarks GENERAL: This is a well-nourished, well-developed patient, in no apparent distress. SKIN: No rashes, ecchymoses. Cool and dry. Lipoma on right upper back. HEAD: Atraumatic. Normocephalic. No temporal or scalp tenderness. EYES: Pupils equal round and reactive. Extraocular motions intact. No scleral icterus. No injection or drainage. ENT: Nose without bleeding, purulent drainage or septal hematoma. Throat without erythema, tonsillar hypertrophy or exudate. Uvula midline. Airway patent. NECK: Trachea midline. No JVD or lymphadenopathy. Supple, nontender, no meningeal signs. CARDIOVASCULAR: Regular rate and rhythm without murmurs, gallops, or rubs. RESPIRATORY: Clear to auscultation. Breath sounds equal bilaterally. No wheezes , rales, or rhonchi. GASTROINTESTINAL: Abdomen soft, non-tender, distended. No hepato-splenomegaly, or palpable masses. No guarding. MUSCULOSKELETAL: Extremities without clubbing, cyanosis, TR edema. No joint tenderness, effusion. NEUROLOGICAL: Awake and alert. Cranial nerves II through XII intact. Motor and sensory grossly within normal limits. Five out of 5 muscle strength in all muscle groups. Normal speech. PSYCH: Mood and affect appropriate. Medications and IVs Current Medications Medications (Trade) Dose Ordered Sig/Emma Route Start Time Stop Time Status Last Admin (NS Flush) 2 ml UNSCH PRN IV FLUSH 05/02/17 14:45 (NS Flush) 2 ml BID IV FLUSH 05/02/17 21:00 05/04/17 08:37 (Tylenol) 650 mg Q4H PRN PO 05/02/17 14:45 (Lovenox Inj) 40 mg Q24H SQ 05/02/17 16:00 05/03/17 16:49 (Tylenol) 650 mg Q6H PRN PO 05/02/17 14:45 05/04/17 04:09 (Narcan Inj) 0.4 mg UNSCH PRN IV 05/02/17 14:45 (Elodia-Colace) 1 tab BID PO 05/02/17 21:00 05/04/17 08:36 (Vasotec Inj) 2.5 mg Q6H PRN IV PUSH 05/02/17 17:00 (Catapres) 0.1 mg Q6H PRN PO 05/02/17 17:00 05/04/17 08:36 (Lasix Inj) 20 mg BID@09,18 IV PUSH 05/02/17 18:00 05/04/17 08:37 (Prinivil) 20 mg DAILY PO 05/02/17 17:00 05/04/17 08:36 (KCl) 20 meq Q12HR PO 05/03/17 21:00 05/04/17 08:36 (Lopressor) 25 mg Q12HR PO 05/04/17 09:00 05/04/17 08:43 A/P Assessment and Plan New-onset acute heart failure The patient endorses lower extremity edema, abdominal distention, dyspnea on exertion, orthopnea and paroxysmal nocturnal dyspnea. Imaging indicative of mild failure. BNP elevated at 1666. He received Lasix in the emergency department with good output. EKG with T wave inversions in the lateral leads. Systolic blood pressure markedly elevated in the emergency department, likely underlying cause of CHF. He also used to smoke and drinks heavily. LDL 105. Trops flat. A1c 6.2%. Echo with EF 20-25% and global LV dysfunction. Cardiology consult appreciated. - switch Lasix 20 mg IV twice a day to 40 mg daily. - Strict I's and O's. - Blood pressure control. - Smoking cessation instruction. - Monitor on telemetry. - stress test per cardiology. - continue ACEi. Add beta elisa. Accelerated hypertension Systolic blood pressure over 200 in the emergency department. He received IV hydralazine. He has no history of hypertension. Improved. - Started lisinopril 20 mg by mouth daily. Lopressor 25 mg BID added 05/04. - Vasotec IV and clonidine as needed. Alcohol abuse The patient endorses drinking up to half a pint of vodka daily, however, he says he has not done so in over a month. Total bilirubin is elevated. Albumin and INR are normal. No evidence of withdrawal. - Drinking cessation instruction. - Trend LFTs. Bronchitis The patient endorses a cough with mucus production. Chest x-ray with minimal consolidative changes. Afebrile and without leukocytosis. - Sputum culture and Gram stain requested. - Oxygen and nebs as needed. Prediabetes A1c 6.2%. - lifestyle modifications discussed. PPx: Lovenox Discharge Planning Awaiting stress test. Anticipate d/c in AM. Guido Bender DO May 04, 2017 10:09
[2017-05-04] MEDS ORDERED: REGADENOSON INJ 0.4 MG/5 ML SYR ONE (14:23)
[2017-05-04] MEDS: ENOXAPARIN SODIUM 40 MG/0.4 ML SYRINGE SQ SCH (17:41)
[2017-05-05] VITALS: BP 136/96; PULSE 67; RESP 22; TEMP 98.2; O2SAT 98
[2017-05-05 04:00] VITALS: BP 136/95; PULSE 66; RESP 20; TEMP 97.8; O2SAT 96
[2017-05-05 08:04] VITALS: BP 158/116; PULSE 80; RESP 19; TEMP 97.3; O2SAT 99
[2017-05-05] MEDS ORDERED: FUROSEMIDE 40 MG TAB PO SCH (09:00)
--- NOTE | 2017-05-05 09:08 | RADRPT ---
EXAM DATE/TIME: 05/04/2017 14:59 [facility] COMPARISON: No previous studies available for comparison. INDICATIONS : Increasing shortness of breath. Congestive heart failure. DOSE: 30.7 mCi Tc99m Myoview at stress. 30.1 mCi Tc99m Myoview at rest. 0.4 mg Lexiscan STRESS SYMPTOMS: Head pressure. EJECTION FRACTION: 22% MEDICAL HISTORY : Hypertension. SURGICAL HISTORY : None. ENCOUNTER: Initial ACUITY: 2 days PAIN SCALE: 0/10 LOCATION: Left chest TECHNIQUE: The patient underwent pharmacologic stress with infusion of prescribed dose. Continuous ECG tracing was monitored during stress. Gated SPECT imaging was performed after stress and conventional SPECT i maging was performed at rest. The examination was performed on a SPECT/CT scanner, both attenuation and non-corrected datasets were reviewed. FINDINGS: DISTRIBUTION: The maximum perfused segment at stress is in the septal wall. PERFUSION STUDY: There are is a mildly diminished relative perfusion most notably in the anterolateral wall, the low a nterior wall and the inferior apical region. There appears to be least mild-moderate redistribution m ost conspicuously in the anterolateral territory. GATED STUDY: Severe left ventricular chamber dilatation and global hypokinesis CONCLUSION: Small multifocal perfusion abnormalities with at least mild redistribution. Severe LV chamber dilatat ion and dysfunction. RISK CATEGORY: Low (<1% Annual Mortality Rate) Nba Crow MD on May 05, 2017 at 9:03 Board Certified Radiologist. This report was verified electronically.
[2017-05-05] MEDS: DOCUSATE SODIUM 50 MG/SENNA 8.6 MG TAB PO SCH (09:15)
[2017-05-05] MEDS: cloNIDine HCL 0.1 MG TAB PO PRN (09:15)
[2017-05-05] MEDS: SODIUM CHLORIDE 0.9% FLUSH 10 ML FLUSH IV FLUSH SCH (09:15)
[2017-05-05] MEDS: POTASSIUM CHLORIDE 20 MEQ CONTROLLED RELEASE TAB PO SCH (09:15)
[2017-05-05] MEDS: LISINOPRIL 10 MG TAB PO SCH (09:15)
[2017-05-05] MEDS: METOPROLOL TARTRATE 25 MG TAB PO SCH (09:15)
[2017-05-05] MEDS ORDERED: METO25TA3 PO (10:51)
[2017-05-05] MEDS ORDERED: LISI10TA3 PO (10:51)
[2017-05-05] MEDS ORDERED: POTA20TA5 PO (10:51)
[2017-05-05] MEDS ORDERED: FURO40TA PO (10:51)
--- NOTE | 2017-05-05 10:52 | HHI.DCPOC ---
Discharge Care Plan Diagnosis: (1) Cardiomyopathy (2) Uncontrolled hypertension (3) Congestive heart failure Goals to Promote Your Health * To prevent worsening of your condition and complications * To maintain your health at the optimal level Directions to Meet Your Goals Take your medications as prescribed Follow your dietary instruction Follow activity as directed Keep your appointments as scheduled Take your immunizations and boosters as scheduled If your symptoms worsen call your PCP, if no PCP go to Urgent Care Center or Emergency Room Smoking is Dangerous to Your Health. Avoid second hand smoke Call the 24-hour hour crisis hotline for domestic abuse at Guido Bender DO May 05, 2017 10:52
--- NOTE | 2017-05-05 11:01 | HHI.DS ---
Discharge Summary Admission Date May 02, 2017 at 13:58 Discharge Date: May 05, 2017 Admitting Diagnosis chf, uncontrolled hypertension, (1) Congestive heart failure ICD Code: I50.9 Diagnosis: Principal (2) Cardiomyopathy ICD Code: I42.9 Diagnosis: Principal (3) Uncontrolled hypertension ICD Code: I10 Diagnosis: Principal Procedures None Brief History - From Admission The patient is a 57-year-old male with no significant past medical history who is presenting to the hospital with generalized swelling and shortness of breath. He says about a month ago he noticed tightness around his abdomen and he became constipated. He says over the next 5-6 days his symptoms got better and he was doing well. Over the last 2 weeks he has been experiencing increased swelling in his legs up to his upper thighs. He also has been endorsing the abdominal tightness and distention. He has had associated shortness of breath. He says he used to bicycle 20 miles daily but over the past month has been unable to do so because of his symptoms. He says that his shortness of breath is worse when he lays down or when he walks around. He says he has not been getting much sleep because a lot of the times he will wake up gasping for air. The patient says that he experiences palpitations from time to time. He says the palpitations occur at rest. They generally will last a few seconds at a time. The patient also endorses a cough with phlegm production recently. He has felt feverish but his thermometer ran out of batteries so he has not been able to measure a temperature. CBC/BMP: 05/03/17 0619 05/04/17 0645 Significant Findings Laboratory Tests Test 05/02/17 05/02/17 05/02/17 05/03/17 11:00 11:05 18:53 06:19 Monocytes (%) (Auto) 12.0 % 10.8 % (0.0-8.0) (0.0-8.0) Lymphocytes # (Auto) 0.8 TH/MM3 0.6 TH/MM3 (1.0-4.8) (1.0-4.8) Estimat Glomerular Filtration 57 ML/MIN (>89) 75 ML/MIN (>89) Rate Random Glucose 107 MG/DL (74-106) Hemoglobin A1c 6.2 % (4.3-6.0) Total Bilirubin 1.4 MG/DL 1.5 MG/DL (0.2-1.0) (0.2-1.0) Aspartate Amino Transf 12 U/L (15-37) 10 U/L (15-37) (AST/SGOT) B-Type Natriuretic Peptide 1666 PG/ML (0-100) LDL Cholesterol 105 MG/DL (0-99) Arterial Blood pH 7.44 (7.380-7.420) Arterial Blood Partial 33 mmHg (38-42) Pressure CO2 Troponin I LESS THAN 0.02 NG/ML (0.02-0.05) Neutrophils (%) (Auto) 75.7 % (16.0-70.0) Prothrombin Time 12.7 SEC (9.8-11.6) Potassium Level 3.3 MEQ/L (3.5-5.1) Test 05/04/17 06:45 Estimat Glomerular Filtration 75 ML/MIN (>89) Rate Imaging Last Impressions Myocardial Perfusion Scan Nuc Med 05/04/17 0000 Signed Impressions: Service Date/Time: Thursday, May 04, 2017 14:59 - CONCLUSION: Small multifocal perfusion abnormalities with at least mild redistribution. Severe LV chamber dilatation and dysfunction. RISK CATEGORY: Low (<1%% Annual Mortality Rate) Nba Crow MD Chest X-Ray 05/02/17 1058 Signed Impressions: Service Date/Time: Tuesday, May 02, 2017 11:01 - CONCLUSION: Cardiomegaly with mild congestive failure. Minimal right apical and left base consolidative changes Peter Clemens MD FACR PE at Discharge GENERAL: This is a well-nourished, well-developed patient, in no apparent distress. SKIN: No rashes, ecchymoses. Cool and dry. Lipoma on right upper back. HEAD: Atraumatic. Normocephalic. No temporal or scalp tenderness. EYES: Pupils equal round and reactive. Extraocular motions intact. No scleral icterus. No injection or drainage. ENT: Nose without bleeding, purulent drainage or septal hematoma. Throat without erythema, tonsillar hypertrophy or exudate. Uvula midline. Airway patent. NECK: Trachea midline. No JVD or lymphadenopathy. Supple, nontender, no meningeal signs. CARDIOVASCULAR: Regular rate and rhythm without murmurs, gallops, or rubs. RESPIRATORY: Clear to auscultation. Breath sounds equal bilaterally. No wheezes , rales, or rhonchi. GASTROINTESTINAL: Abdomen soft, non-tender, distended. No hepato-splenomegaly, or palpable masses. No guarding. MUSCULOSKELETAL: Extremities without clubbing, cyanosis, TR edema. No joint tenderness, effusion. NEUROLOGICAL: Awake and alert. Cranial nerves II through XII intact. Motor and sensory grossly within normal limits. Five out of 5 muscle strength in all muscle groups. Normal speech. PSYCH: Mood and affect appropriate. Pt update on day of discharge The patient was resting comfortably. He said his legs were less swollen. He says his breathing was okay with his legs propped up a little bit. He said that he was given the LifeVest yesterday but has had problems keeping it on because it will alarm it is not fitting him well. He wanted to know the results of his stress test. Discussed with cardiology. Hospital Course New-onset acute systolic heart failure The patient endorsed lower extremity edema, abdominal distention, dyspnea on exertion, orthopnea and paroxysmal nocturnal dyspnea. Imaging was indicative of mild failure. BNP elevated at 1666. He received Lasix in the emergency department with good urine output. EKG with T wave inversions in the lateral leads. Systolic blood pressure markedly elevated in the emergency department. LDL 105. Trops flat. A1c 6.2%. Echo with EF 20-25% and global LV dysfunction. Cardiology was consulted. He was diuresed with Lasix 20 mg IV twice a day. We monitored strict I's and O's. He received blood pressure control and smoking cessation instruction. We monitored him on telemetry. Stress test per cardiology showed: Small multifocal perfusion abnormalities with at least mild redistribution; Severe LV chamber dilatation and dysfunction. He was fitted with a LifeVest. He will continue an ACEi and beta elisa. He will continue Lasix. He will follow-up with cardiology as an outpt. Accelerated hypertension Systolic blood pressure over 200 in the emergency department. He received IV hydralazine. He has no history of hypertension. He was started on lisinopril 20 mg by mouth daily. Lopressor 25 mg BID was added. He received Vasotec IV and clonidine as needed. His blood pressure was much improved on the current regimen. He will continue lisinopril and Lopressor and will follow up with cardiology. Alcohol abuse The patient endorsed drinking up to half a pint of vodka daily, however, he says he has not done so in over a month. Total bilirubin was elevated. Albumin and INR were normal. No evidence of withdrawal while in the hospital. He received alcohol cessation instruction. Prediabetes A1c 6.2%. Lifestyle modifications were discussed. Pt Condition on Discharge: Stable Discharge Disposition: Discharge Home Discharge Time: > 30 minutes Discharge Instructions DIET: Follow Instructions for: Heart Healthy Diet Activities you can perform: Weight Bearing as [place] Follow up Referrals: Cardiology - [address] Serna PCP Follow-up - 1 Week New Medications: Defibrillator Jacket (Defibrillator Jacket) 1 Ea Device 1 EA EXTERNAL ONCE Energy = 150 Joules; VT Threshold = 150 BPM; VF Threshold = 200 BPM Use up to 90 days only cardiomyopathy #1 Ref 3 EA Furosemide (Furosemide) 40 Mg Tab 40 MG PO DAILY Heart failure #30 TAB Lisinopril (Lisinopril) 10 Mg Tab 20 MG PO DAILY Blood Pressure Management #30 TAB Metoprolol Tartrate (Metoprolol Tartrate) 25 Mg Tab 25 MG PO Q12HR Blood Pressure Management #60 TAB Potassium Chloride Microencaps (Potassium Chloride Microencaps) 20 Meq Tab 20 MEQ PO DAILY Lasix #30 TAB Guido Bender DO May 05, 2017 11:01
[2017-05-05] MEDS: ACETAMINOPHEN 325 MG TAB PO PRN (11:30)
[2017-05-05 12:04] VITALS: BP 138/97; PULSE 72; RESP 19; TEMP 97.6; O2SAT 99
[2017-05-05 12:56] VITALS: O2SAT 96
== END 2017-05-05 15:35 | disposition home or self-care (01) | DRG 293 ==
LOC: NEPC 10:30 → NEDA 13:58 → N04B 19:14
PROVIDERS: ADMIT Hospitalist; ATTEND Hospitalist
DX: I11.0 Hypertensive heart disease with heart failure (principal); I42.9 Cardiomyopathy, unspecified; I50.21 Acute systolic (congestive) heart failure; F10.10 Alcohol abuse, uncomplicated; K59.00 Constipation, unspecified; J40 Bronchitis, not specified as acute or chronic; R73.03 Prediabetes; Z79.899 Other long term (current) drug therapy; Z87.891 Personal history of nicotine dependence
CPT/HCPCS: 36600; 71010; 78452; 80048; 80053; 80061; 82550; 82805; 83036; 83735; 83880; 84443; 84484; 85025; 85610; 87070; 87205; 93005; 93017; 93306; 94150; 96374; A9502; J0360; J1650; J1940; J2785